=== PATIENT | male | born 1965 | race Caucasian/White ===

== ENCOUNTER 2018-01-12 17:14 | Emergency (ER) | payer MEDICAID ==
[~2018-01-12] VITALS: Ht 170.2 cm; Wt 66.0 kg
[~2018-01-12 17:14] MED LIST: CEPH-572 PO; CLIN-26 PO; NO HOME MEDS
[2018-01-12] MEDS ORDERED: HYDROcodone/acetaminophen 5mg/325mg tablet PO ONE (19:10)
[2018-01-12] MEDS ORDERED: ketorolac trometh inj. 60 MG/2 ML VIAL IM ONE (19:10)
[2018-01-12] MEDS ORDERED: ondansetron 4mg rapidly disintigrating tab PO ONE (19:10)
[2018-01-12] MEDS ORDERED: amoxicillin 250mg capsule PO ONE (20:00)
[2018-01-12] MEDS ORDERED: AMOX500C2 PO (20:20)
[2018-01-12] MEDS ORDERED: IBUP-1985 PO (20:20)
[2018-01-12] MEDS ORDERED: ACET-812 PO (20:20)
[2018-01-12 20:36] VITALS: BP 125/89
== END 2018-01-12 20:49 | disposition home or self-care (01) ==
LOC: ER 17:15
DX: K04.7 Periapical abscess without sinus (principal); K21.9 Gastro-esophageal reflux disease without esophagitis; F15.90 Other stimulant use, unspecified, uncomplicated; F11.90 Opioid use, unspecified, uncomplicated; Z79.899 Other long term (current) drug therapy; Z59.0 Homelessness
CPT/HCPCS: 41800; 96372; 99284; A6449; J1885

== ENCOUNTER 2022-09-15 16:26 | Emergency (ER) | payer MEDICAID ==
[~2022-09-15] VITALS: Ht 170.2 cm; Wt 65.0 kg
[~2022-09-15 16:26] MED LIST changes: +IBUP-1985 PO
[2022-09-15 16:30] VITALS: BP 116/86
== END 2022-09-15 16:53 | disposition home or self-care (01) ==
LOC: ER 16:27
DX: F10.239 Alcohol dependence with withdrawal, unspecified (principal); K21.9 Gastro-esophageal reflux disease without esophagitis; F15.20 Other stimulant dependence, uncomplicated; Z59.00 Homelessness unspecified; Y90.9 Presence of alcohol in blood, level not specified
CPT/HCPCS: 99281

== ENCOUNTER 2022-11-19 15:39 | Emergency (ER) | payer MEDICAID ==
[~2022-11-19] VITALS: Ht 170.2 cm; Wt 72.7 kg
[2022-11-19] MEDS ORDERED: normal saline 1000ml 1,000 ML IV ONE (15:55)
[2022-11-19 16:23] LABS: BASOPHILS # (AUTO) 0.1 X10'3 (0-0.2); BASOPHILS % (AUTO) 0.6 % (0-1); EOSINOPHILS # (AUTO) 0.1 X10'3 (0-0.9); EOSINOPHILS % (AUTO) 1.1 % (0-6); HEMATOCRIT 49.1 % (42.0-52.0); HEMOGLOBIN 16.6 g/dl (14.0-17.9); LYMPHOCYTES # (AUTO) 2.7 X10'3 (1.1-4.8); LYMPHOCYTES % (AUTO) 26.6 % (21-51); MEAN CORPUSCULAR HEMOGLOBIN 31.2 PG (27.0-31.0); MEAN CORPUSCULAR HGB CONC 33.8 g/dL (33.0-36.5); MEAN CORPUSCULAR VOLUME 92.5 FL (78-98); MEAN PLATELET VOLUME 6.5 FL (7.4-10.4); MONOCYTES # (AUTO) 0.7 X10'3 (0-0.9); MONOCYTES % (AUTO) 6.7 % (2-12); NEUTROPHILS # (AUTO) 6.5 X10'3 (1.8-7.7); PLATELET COUNT 303 X10'3 (140-440); RED BLOOD COUNT 5.31 X10'6 (4.70-6.10); RED CELL DISTRIBUTION WIDTH 14.5 % (11.5-14.5); WHITE BLOOD COUNT 10.1 X10'3 (4.5-11.0)
[2022-11-19 16:30] LABS: ALANINE AMINOTRANSFERASE 215 U/L (12-78); ALBUMIN 3.5 G/DL (3.4-5.0); ALBUMIN/GLOBULIN RATIO 0.8 (1.1-1.5); ALKALINE PHOSPHATASE 135 IU/L (46-116); ANION GAP 12 (8-16); ASPARTATE AMINO TRANSFERASE 126 U/L (10-37); BILIRUBIN,TOTAL 0.4 MG/DL (0.1-1.0); BLOOD UREA NITROGEN 12 MG/DL (7-18); CALCIUM 9.2 MG/DL (8.5-10.1); CHLORIDE 105 MMOL/L (99-107); CREATININE 1.09 MG/DL (0.60-1.10); ETHANOL 0.032 GM/DL (0.0-0.010); POTASSIUM 3.6 MMOL/L (3.5-5.1); SODIUM 141 MMOL/L (135-145); TOTAL CARBON DIOXIDE 23.7 MMOL/L (24-32); TOTAL PROTEIN 7.8 G/DL (6.4-8.2); eGFR 69 ML/MIN
[2022-11-19 16:32] LABS: GLUCOSE 90 MG/DL (70-104)
[2022-11-19] MEDS ORDERED: NALO4SPR BOTHNARES (18:24)
[2022-11-19 18:47] VITALS: BP 144/84
[2022-11-19] MEDS ORDERED: naloxone 2mg/2ml inj IV STA (18:59)
[2022-11-19] MEDS ORDERED: ondansetron/PF 4mg/2ml inj IV ONE (21:40)
--- NOTE | 2022-11-19 21:46 | NUR ---
Patient was able to walk to the bathroom w/o assistance. Pt was given a sandwich and a sweatshirt before discharge.
== END 2022-11-19 21:55 | disposition home or self-care (01) ==
LOC: ER 15:39
DX: T39.1X1A Poisoning by 4-Aminophenol derivatives, accidental (unintentional), initial encounter (principal); R41.82 Altered mental status, unspecified; Y92.89 Other specified places as the place of occurrence of the external cause
CPT/HCPCS: 36415; 80053; 80320; 85025; 96361; 96374; 96375; 99284; J2310; J2405; J7030; A4615

== ENCOUNTER 2025-02-25 09:55 | Emergency (ER) | payer MEDICAID ==
[~2025-02-25] VITALS: Ht 170.2 cm; Wt 79.7 kg
[~2025-02-25 09:55] MED LIST changes: -IBUP-1985 PO; +IBUP600T52 PO; +NALO4SPR BOTHNARES
[2025-02-25 10:41] LABS: MEAN PLATELET VOLUME 6.6 FL (7.4-10.4); RED CELL DISTRIBUTION WIDTH 13.8 % (11.5-14.5)
[2025-02-25 10:50] LABS: CREATININE 1.14 MG/DL (0.60-1.10); TOTAL CARBON DIOXIDE 22.6 MMOL/L (24-32); eCRCL 64 ML/MIN; eGFR 65 ML/MIN
--- NOTE | 2025-02-25 13:08 | Physician Documentation ---
History of Present Illness ~ General Chief Complaint: See Chief Complaint Stated Complaint: RASH Time Seen by MD: 12:44 Primary Medical Doctor: Mala Huang Mode of Arrival: Ambulatory History of Present Illness Initial Comments Patient is seen today with complaints of rash in his lower extremities that patient states he has had off and on previously. Patient admits to liver problems. Patient denies any chest pain or shortness of breath or abdominal pain or nausea, vomiting, diarrhea or fever or chills. Patient has no other concern or complaint at this time. Medication Reconciliation Allergies: Coded Allergies: No Known Allergies (Unverified , 02/25/25) Scheduled Cephalexin (Keflex), 500 MG PO QID Clindamycin HCl (Clindamycin HCl), 450 CAP PO TID Ibuprofen (Ibuprofen), 1 TAB PO Q6H Naloxone HCl (Narcan), 1 SPRAYS BOTHNARES ONCE Miscellaneous Medications Home Med List (No Home Medications), (Reported) Past Medical History Past Medical History: Pneumonia, GERD, Hepatitis C Past Surgical History: no surgical history Alcohol Use: Alcoholic Drug Use: methamphetamine, heroin Lives In: Homeless Occupation: unemployed Review of Systems Constitutional: Denies: chills, fever, weakness Eyes: Denies: pain, blurred vision ENT: Denies: ear pain, nose pain, throat pain, mouth pain Respiratory: Denies: cough, shortness of breath Cardiovascular: Denies: chest pain, palpitations Gastrointestinal: Denies: abdominal pain, nausea, vomiting Genitourinary: Denies: burning, dysuria Male Genitalia: Denies: penile discharge, testicular pain Neurological: Denies: headache, dizziness Musculoskeletal: Denies: pain, swelling Integumentary: Denies: rash, lesions Allergic/Immunologic: Denies: hives, itching Hematologic/Lymphatic: Denies: no symptoms reported Psychiatric: Denies: depression, anxiety Physical Exam Physical Exam Vital Signs: Temperature: 97.6, Source: Temporal, Heart Rate: 89, Respiratory Rate: 19, BP: 133/68, Pulse Oximetry: 100, Weight: 79.700 Oxygen Flow Rate: 0 Physical Exam General: Awake and Alert, no acute distress. HEENT: Conjunctiva pink, Sclera clear, Mucus Membranes moist. Neck: Supple without masses and tenderness. Resp: Unlabored. Lungs clear to auscultation bilaterally. Heart: Regular Rate and rhythm, normal S1 and S2 without murmur, rub or gallop. Abdomen: Soft and non tender no organomegaly Extremities: No cyanosis,clubbing or edema. Skin: Patient does have nonblanching rash that is coalescent in appearance and covers his thighs and just distal to his knees and extends proximally up into his groin and has satellite lesions in his lower abdomen. There is a significant rash with almost weeping in the intertriginous area of his groin. Progress Results/Orders Results/Orders Completed Orders - KYA KING PAC Cbc/Diff (02/25/25 10:20) CMP (02/25/25 10:20) Fluconazole Tablet (Diflucan Tablet) (02/25/25 12:49) Vital Signs 02/25/25 02/25/25 02/25/25 10:12 12:22 12:24 Temp 97.6 97.6 Pulse 80 89 Resp 16 19 B/P (MAP) 125/65 133/68 (89) Pulse Ox 95 100 O2 Flow Rate 0 0 Laboratory Tests Test 02/25/25 10:27 White Blood Count 13.1 H Red Blood Count 4.84 Hemoglobin 14.8 Hematocrit 43.2 Mean Corpuscular Volume 89.3 Mean Corpuscular Hemoglobin 30.7 Mean Corpuscular Hemoglobin Concent 34.4 Red Cell Distribution Width 13.8 Platelet Count 264 Mean Platelet Volume 6.6 L Neutrophils (%) (Auto) 70.4 Lymphocytes (%) (Auto) 23.5 Monocytes (%) (Auto) 5.4 Eosinophils (%) (Auto) 0.1 Basophils (%) (Auto) 0.6 Neutrophils # (Auto) 9.2 H Lymphocytes # (Auto) 3.1 Monocytes # (Auto) 0.7 Eosinophils # (Auto) 0.0 Basophils # (Auto) 0.1 CBC Comment Sodium Level 141 Potassium Level 4.0 Chloride Level 104 Carbon Dioxide Level 22.6 L Anion Gap 14 Blood Urea Nitrogen 19 H Creatinine 1.14 H Estimated GFR/1.73 m2 65 BUN/Creatinine Ratio 16.7 Glucose Level 79 Calcium Level 8.8 Total Bilirubin 1.8 H Aspartate Amino Transf (AST/SGOT) 122 H Alanine Aminotransferase (ALT/SGPT) 191 H Alkaline Phosphatase 116 Total Protein 7.5 Albumin 3.6 Globulin 3.9 Albumin/Globulin Ratio 0.9 L Chemistry Comments Medical Decision Making Findings Patient is seen today with complaints of rash in his lower extremities that patient states he has had off and on previously. Patient admits to liver problems. Patient denies any chest pain or shortness of breath or abdominal pain or nausea, vomiting, diarrhea or fever or chills. Patient has no other concern or complaint at this time. Patient did have labs drawn in the ED which showed mildly elevated white count and elevated liver enzymes with AST at 1:22 a.m. and ALT at 191. Patient was treated in the ED today with topical clotrimazole ointment as well as Decadron 10 mg p.o. and Kenalog 40 mg IM. Patient will be sent home on Medrol Dosepak taper. Patient will follow up with primary care in 2-3 days if no better as needed sooner. Return to ED with any worsening, concerning or changing symptoms. Patient needs a referral to a fruit thinner machine operator by primary care. Departure Disposition: 01 HOME / SELF CARE / HOMELESS Impression: Primary Impression: Rash Additional Impression: Elevated LFTs Condition: Stable Discharge Instructions: Alcoholic Hepatitis, Intertrigo, [id number] Additional Instructions: Patient did have labs drawn in the ED which showed mildly elevated white count and elevated liver enzymes with AST at 1:22 a.m. and ALT at 191. Patient was treated in the ED today with topical clotrimazole ointment as well as Decadron 10 mg p.o. and Kenalog 40 mg IM. Patient will be sent home on Medrol Dosepak taper. Patient will follow up with primary care in 2-3 days if no better as needed sooner. Return to ED with any worsening, concerning or changing symptoms. Patient needs a referral to a fruit thinner machine operator by primary care. Referrals: NO PRIMARY CARE PROVIDER (PCP) Prescriptions Clotrimazole (Clotrimazole) 1 % Cream..g. 1 APPLIC TOP Q8H for 7 Days, #45 GM 0 Refills apply to affected area(s) Prov: KYA KING 02/25/25 Methylprednisolone (Medrol Dosepak) 4 Mg Tab.ds.pk 0 PO UD, #21 TAB 0 Refills take 6 Pills Day 1, 5 Pills Day 2, 4 Pills Day 3, 3 Pills Day 4, 2 Pills Day 5 and 1 pill Day 6 Prov: KYA KING 9/17/25 Signature Scribe Signature: No scribe Attestation: No scribe KYA KING PAC Feb 25, 2025 13:08
[2025-02-25] MEDS: dexamethasone sod phosphate 10mg/ml inj PO STA (13:19)
[2025-02-25] MEDS: triamcinolone acetonide 40mg/ml inj IM STA (13:19)
[2025-02-25] MEDS ORDERED: METH4TAB81 PO (13:20)
[2025-02-25] MEDS ORDERED: CLOT30CR19 TOP (13:21)
[2025-02-25] MEDS: clotrimazole topical cream 15gm tube TP STA (13:26)
[2025-02-25 13:38] VITALS: BP 145/90; PULSE 79; RESP 12; TEMP 97.6; O2SAT 100
== END 2025-02-25 14:15 | disposition home or self-care (01) ==
LOC: ER 09:56
DX: R21 Rash and other nonspecific skin eruption (principal); R79.89 Other specified abnormal findings of blood chemistry; K21.9 Gastro-esophageal reflux disease without esophagitis; F15.90 Other stimulant use, unspecified, uncomplicated; F11.90 Opioid use, unspecified, uncomplicated; F10.90 Alcohol use, unspecified, uncomplicated; Z56.0 Unemployment, unspecified; Z59.00 Homelessness unspecified; Z86.19 Personal history of other infectious and parasitic diseases; Z79.899 Other long term (current) drug therapy; Y90.9 Presence of alcohol in blood, level not specified
CPT/HCPCS: 36415; 80053; 85025; 96372; 99283; J1100; J3301

== ENCOUNTER 2025-04-12 17:24 | Emergency (ER) | payer MEDICAID ==
[~2025-04-12 17:24] MED LIST changes: +CLOT30CR19 TOP; +METH4TAB81 PO
== END 2025-04-12 18:00 | disposition left against medical advice (07) ==
LOC: ER 17:24
DX: Z00.8 Encounter for other general examination (principal); Z53.21 Procedure and treatment not carried out due to patient leaving prior to being seen by health care provider

== ENCOUNTER 2025-05-10 13:23 | Emergency (ER) | payer MEDICAID ==
[~2025-05-10] VITALS: Ht 170.2 cm; Wt 72.9 kg
--- NOTE | 2025-05-10 15:30 | Physician Documentation ---
History of Present Illness ~ Chief Complaint: See Chief Complaint Stated Complaint: MULTIPLE COMPLAINTS Time Seen by MD: 14:54 Primary Medical Doctor: Mala Huang HPI 60-year-old male presents to the ED stating he has multiple dog microchip was placed in his body prior primarily in his left hand.. He does not report having a micro tips planted but thinks it happened when he was passed out Tetanus within 5 years: No Medication Reconciliation Allergies: Coded Allergies: No Known Allergies (Unverified , 05/10/25) Scheduled Cephalexin (Keflex), 500 MG PO QID Clindamycin HCl (Clindamycin HCl), 450 CAP PO TID Clotrimazole (Clotrimazole), 1 APPLIC TOP Q8H Ibuprofen (Ibuprofen), 1 TAB PO Q6H Methylprednisolone (Medrol Dosepak), 0 PO UD Naloxone HCl (Narcan), 1 SPRAYS BOTHNARES ONCE Miscellaneous Medications Home Med List (No Home Medications), (Reported) Past Medical History Past Medical History: Pneumonia, GERD, Hepatitis C Past Surgical History: no surgical history Alcohol Use: Alcoholic Drug Use: methamphetamine, heroin Lives In: Homeless Occupation: unemployed Review of Systems All Other Systems at this time: Reviewed and Negative ROS As stated above in the HPI, otherwise all systems are reviewed and negative. Physical Exam Vital Signs: Temperature: 98.4, Source: Temporal, Heart Rate: 92, Respiratory Rate: 18, BP: 118/70, Pulse Oximetry: 99, Weight: 72.900 Oxygen Flow Rate: 0 Physical Exam General: Alert, no apparent distress. HEENT: PERRL, EOMI, no injection, moist mucous membranes. Neck: Full range of motion. Respiratory: Lungs clear, no respiratory distress. Chest: No accessory muscle use. Cardiovascular: Regular rate and rhythm, no murmurs. Gastrointestinal: Soft, nontender, nondistended. Bowels sounds present. Extremities: Normal range of motion, no deformity. Neurologic: Oriented x4. Psychiatric: Normal mood and affect. Skin: Normal color, warm and dry. No edema, no ecchymosis. Progress Results/Orders Results/Orders Orders - MATEO KUMAR VOCAL ARTIST Hand, Complete (3vw Min) (05/10/25 15:39) Completed Orders - MATEO KUMAR VOCAL ARTIST Hand, Complete (3vw Min) (11/30/25 15:39) Vital Signs 05/10/25 05/10/25 13:26 15:58 Temp 98.4 98.4 Pulse 92 86 Resp 18 18 B/P (MAP) 118/70 138/81 Pulse Ox 99 96 O2 Flow Rate 0 Medical Decision Making Additional information obtaine: N/A Findings No evidence of micro chips in his hand. Ready for discharge General Diff Dx:Considerations: Include: Abrasion, Contusion, Fracture, Hematoma, Laceration, Malunion, Neurovascular injury, Open fracture, Sprain, Ulcer, Other Shoulder Diff Dx:Consideration: Unlikely: AC separation, Adhesive capsulitis, Arthritis, Bicipital tendonitis, Calcific tendonitis, Cervical disc disease, Contusion, Dislocation, Fracture-humerus, Fracture-scapula, Fracture-clavicle, GB disease, Hematoma, Impingement syndrome, Myocardial infarction, Neurovascular injury, Open fracture-humerus, Open fracture-scapula, Open fracture-clavicle, Rotator cuff injury, SC dislocatoin, Sprain, Subacromial bursitis, Other Elbow Diff Dx:Considerations: Unlikely: Abrasion, Arthritis, Contustion, DJD, Fracture-humerus, Fracture-radial head, Fracture-radius, Fracture-ulna, Gout, Hematoma, Laceration, Neurovascular injury, Olecranon bursitis, Open fracture, Osteomyelitis, Radial head subluxation, Rheumatoid arthritis, Septic, Sprain, Ulcer, Other Wrist Diff Dx:Considerations: Unlikely: Abrasion, Arthritis, DJD, Gout, Rheumatoid, Septic, Carpal tunnel snydrome, Contusion, Dislocation, Fracture- carpal, Fracture-radius, Fracture-ulna, Ganglion, Laceration, Neurovascular injury, Open fracture, Strain, Other Hand Diff Dx:Considerations: Unlikely: Abrasion, Arthritis, Contusion, DJD, Felon, Fracture-carpal, Fracture-metacarpal, Fracture-phalynx, Fracture-radius, Fracture-ulna, Gout, Hematoma, Herpetic bennett, Laceration, Neurovascular injury, Open fracture, Paronychia, Rheumatoid arthritis, Septic, Sprain, Subungual hematoma, Tenosynovitis, Volar plate injury, Cellulitis, Malunion, Other Finger Diff Dx:Considerations: Unlikely: Abrasion, Cellulitis, Contusion, Dislocation, Fracture, Hematoma, Laceration, Neurovascular injury, Open fracture, Subungual hematoma, Other Departure Disposition: 01 HOME / SELF CARE / HOMELESS Impression: Primary Impression: Polysubstance abuse Condition: Improved Discharge Instructions: Hand Contusion, [id number] Referrals: NO PRIMARY CARE PROVIDER (PCP) Signature Scribe Signature: iScribed for Mateo Kumar Medical Information Specialist by Mateo Olivo NP . 05/10/25 23:04 Attestation: Scribed for Mateo Kumar Medical Information Specialist by Mateo Olivo NP . 05/10/25 23:04 MATEO KUMAR NP May 10, 2025 15:30
--- NOTE | 2025-05-10 15:51 | RADIOLOGY REPORT ---
CLINICAL INDICATION: concernes for FB TECHNIQUE: Left DI HAND, COMPLETE (3VW MIN) Comparison: None FINDINGS/IMPRESSION: : There is no evidence of acute fracture or dislocation. Soft tissues are unremarkable. Degenerative changes of the 2nd D IP. No appreciable radiopaque foreign body.
[2025-05-10 15:58] VITALS: BP 138/81; PULSE 86; RESP 18; TEMP 98.4; O2SAT 96
== END 2025-05-10 16:00 | disposition home or self-care (01) ==
LOC: ER 13:24
DX: F19.10 Other psychoactive substance abuse, uncomplicated (principal); K21.9 Gastro-esophageal reflux disease without esophagitis; F15.90 Other stimulant use, unspecified, uncomplicated; F11.90 Opioid use, unspecified, uncomplicated; F10.90 Alcohol use, unspecified, uncomplicated; Z86.19 Personal history of other infectious and parasitic diseases; Z79.899 Other long term (current) drug therapy; Z56.0 Unemployment, unspecified; Z59.00 Homelessness unspecified; Y90.9 Presence of alcohol in blood, level not specified
CPT/HCPCS: 73130; 99283